=== PATIENT | male | born 1965 | race Caucasian/White ===

== ENCOUNTER 2017-08-31 10:53 | Emergency (ER) | payer OTHER ==
[2017-08-31 10:59] VITALS: RESP 16; TEMP 97.5
--- NOTE | 2017-08-31 12:46 | EDPHY ---
H & P Time Seen by Provider: 08/31/17 12:24 HPI/ROS: CHIEF COMPLAINT: Rectal pain HISTORY OF PRESENT ILLNESS: Patient had a bowel movement 4 days ago and subsequently has rectal pain which is worse with bowel movement associated occasionally with bright red blood. REVIEW OF SYSTEMS: No abdominal pain vomiting or fever. No foreign body insertion. PAST MEDICAL HISTORY: Negative General Appearance: Alert and conversant, cooperative. Abdomen soft and nontender. No kassidy anal induration fluctuance swelling tenderness or skin discoloration. Stool is brown. Anoscopy shows anal fissure at the 6 o'clock position with very slight bright red bleeding. No bleeding proximal to the scope. Emergency Department course/MDM: Diabetes cane, stool softeners, diagnosis and follow-up discussed with the patient. Smoking Status: Never smoked Constitutional: Initial Vital Signs Temperature (C) 36.4 C 08/31/17 10:54 Heart Rate 110 H 08/31/17 10:54 Respiratory Rate 16 08/31/17 10:54 Blood Pressure 158/102 H 08/31/17 10:54 O2 Sat (%) 95 08/31/17 10:54 O2 Delivery Mode Room Air Allergies/Adverse Reactions: No Known Allergies Allergy (Unverified 08/31/17 10:59) Home Medications: Medication Instructions Recorded Dibucaine 30 gm TP Q12 PRN #1 oint...g. 08/31/17 Docusate Sodium [Colace 100 MG (*)] 100 mg PO BID #20 cap 08/31/17 MDM/Departure - Depart Disposition: Home, Routine, Self-Care Clinical Impression: Acute anal fissure Condition: Good Instructions: Anal Fissure (ED) Prescriptions: Dibucaine 30 gm TP Q12 PRN #1 oint...g. PRN Reason: rectal pain Docusate Sodium [Colace 100 MG (*)] 100 mg PO BID #20 cap Referrals: Miko Jeter MD [Medical Doctor] - 5-7 days, if not improved
[2017-08-31 12:52] VITALS: BP 157/99; PULSE 100; O2SAT 93
== END 2017-08-31 12:51 | disposition home or self-care (01) ==
DX: K60.0 Acute anal fissure (principal)